=== PATIENT | female | born 1950 | race Hispanic/Latino ===

== ENCOUNTER → 2017-05-31 | Day surgery (SDC) | payer MEDICARE, MEDICAID ==
[~2017-05-31] VITALS: Ht 134.6 cm; Wt 86.2 kg
[~2017-05-31] MED LIST: 0.9% Sodium Chloride 1,000 ML IV SCH; ASPI-973 PO; CALC600T12 PO; CHOL100043 PO; CITA20TA11 PO; CLOB15CR3 TOP; CYCL5TAB PO; GLIP2.5T2 PO; HYDR-4003 PO; KEN1O TOP; LISI10TA PO; METF500T4 PO; NPR500T PO; PRAV80TA2 PO; SENN-133 PO; SIMV20TA4 PO; Sodium Chloride LOK Flush 10 mL Syringe IV PRN; [UNRECOGNIZED DRUG - CODE] PO; fentaNYL-PF 50 mCg/mL 2 mL Inj IVPUSH PRN
[2017-05-31 14:27] VITALS: BP 102/60; PULSE 74; RESP 16; O2SAT 97
[2017-05-31 15:09] VITALS: BP 97/49; PULSE 76; RESP 15; O2SAT 92
[2017-05-31 15:19] VITALS: BP 99/54; PULSE 77; RESP 15; O2SAT 93
--- NOTE | 2017-05-31 15:22 | ENDO ---
[address] [address] ENDOSCOPY PROCEDURE PATIENT: MANSOOR HANKINS : 1950 MR#: [id number] ADMIT: 05/31/2017 JOB ID: [id number] DATE: 05/31/2017 TYPE OF OPERATION: Colonoscopy. PREOPERATIVE DIAGNOSIS(ES): History of adenoma polyp. POSTOPERATIVE DIAGNOSIS(ES): Severe sigmoid diverticulosis. ANESTHESIA: 1. Fentanyl 125 mcg. 2. Versed 6 mg IV administered. COMPLICATIONS: None. BLOOD LOSS: Minimal. DESCRIPTION OF PROCEDURE: After the risks and benefits were explained to the patient, informed consent was obtained. After anesthesia administered, colonoscope was then inserted from the rectum to the cecum. Mucosa carefully examined. Prep of the patient was excellent. After procedure was done, the scope was withdrawn and procedure terminated. FINDINGS: Upon inspection of the anus, no masses, hemorrhoids, ulcers or fissures are seen. Throughout the entire examination, severe sigmoid diverticulosis. No polyps or masses were seen. Retroflexion was normal. IMPRESSIONS: Severe sigmoid diverticulosis. RECOMMENDATION: 1. High fiber diet. 2. Repeat colonoscopy five years given history of adenoma polyp.
[2017-05-31 15:29] VITALS: BP 101/58; PULSE 91; RESP 15; O2SAT 93
== END | disposition home or self-care (01) ==
LOC: END 01:08
PROVIDERS: ATTEND Internal Medicine Gastroenterology
DX: Z12.11 Encounter for screening for malignant neoplasm of colon (principal); Z86.010 Personal history of colon polyps; K57.30 Diverticulosis of large intestine without perforation or abscess without bleeding; I10 Essential (primary) hypertension; E11.9 Type 2 diabetes mellitus without complications; Z79.84 Long term (current) use of oral hypoglycemic drugs
CPT/HCPCS: G0105; G0500; J3010; J7030